=== PATIENT | female | born 1955 | race Two or more races ===

== ENCOUNTER 2023-12-07 13:25 | Outpatient (CLI) | payer OTHER | END 2023-12-07 13:33 | disposition home or self-care (01) | LOC: RAD 13:25 | PROVIDERS: ATTEND Physical Medicine & Rehabilitation | DX: M17.12 Unilateral primary osteoarthritis, left knee (principal); M17.11 Unilateral primary osteoarthritis, right knee ==

== ENCOUNTER 2024-02-21 08:14 | Outpatient (CLI) | payer OTHER | END 2024-02-21 08:15 | disposition home or self-care (01) | LOC: RAD 08:14 | PROVIDERS: ATTEND Physical Medicine & Rehabilitation | DX: M54.6 Pain in thoracic spine (principal); M54.50 Low back pain, unspecified ==

== ENCOUNTER → 2024-07-10 | Outpatient (CLI) | payer OTHER | END | disposition home or self-care (01) | LOC: RAD 08:15 | PROVIDERS: ATTEND Orthopaedic Surgery | DX: M25.561 Pain in right knee (principal); M25.562 Pain in left knee ==

== ENCOUNTER 2024-07-18 16:50 | Outpatient (CLI) | payer OTHER | END 2024-07-18 17:00 | disposition home or self-care (01) | LOC: TOM 16:50 | PROVIDERS: ATTEND Specialist | DX: K43.2 Incisional hernia without obstruction or gangrene (principal) | CPT/HCPCS: 74177; Q9965 ==

== ENCOUNTER 2024-11-12 11:36 | Inpatient (IN) | payer OTHER ==
[~2024-11-12] VITALS: Ht 152.4 cm; Wt 68.0 kg
[2024-11-12] MEDS ORDERED: ATENOLOL50 MG PO (12:01)
[2024-11-12] MEDS ORDERED: CHLORTHALIDONE25 MG PO (12:01)
[2024-11-12] MEDS ORDERED: AMOX-CLAV 875-1 EACH PO (12:01)
--- NOTE | 2024-11-12 12:02 | NUR ---
SE RECIBE PTE ALERTA, ORIENTADO X3 Y AMBULANDO. PTE REFIERE DOLOR ABDOMINAL DESDE LA MANANA Y NAUSEAS. SE MIDEN S/V Y SE UBICA.
[2024-11-12] MEDS ORDERED: KETOROLAC TROMETHAMINE 30 MG VIAL ONE (12:28)
[2024-11-12] MEDS ORDERED: DIATRIZOATE MEGLUMINE, SODIUM 30 ML BOTTLE ONE (12:28)
[2024-11-12] MEDS ORDERED: DIATRIZOATE MEGLUMINE, SODIUM 30 ML BOTTLE PO ONE (12:30)
[2024-11-12] MEDS ORDERED: 0.9 % SODIUM CHLORIDE 1,000 ML IV SCH ×2 (12:30→22:00)
[2024-11-12] MEDS ORDERED: KETOROLAC TROMETHAMINE 30 MG VIAL IV ONE (12:30)
[2024-11-12] MEDS ORDERED: ONDANSETRON HCL 2 MG/ML VIAL IV ONE (13:15)
[2024-11-12] MEDS ORDERED: ONDANSETRON HCL 2 MG/ML VIAL ONE (13:17)
[2024-11-12 13:23] LABS: BASO % 0.3 % (0.1-1.2); EOS # 0.19 (0.04-0.54); EOS % 0.6 % (0.7-7.0); LYMPH # 4.29 (1.18-3.74); LYMPH % 12.8 % (19.3-53.1); MEAN PLATELET VOLUME 9.80 fl (9.4-12.4); MONO # 1.29 (0.24-0.82); MONO % 3.9 % (4.7-12.5); NEUT # 27.27 (1.56-6.13); NEUT % 81.4 % (34.0-71.1); RED CELL DISTRIBUTION WIDTH 13.9 % (11.6-14.4)
[2024-11-12 13:46] LABS: INR 1.08
[2024-11-12 13:47] LABS: ALT/SGPT 18.0 U/L (12-78); AST/SGOT 10.0 U/L (15-37); BILIRUBIN TOTAL 0.64 mg/dL (0.3-1.2); BUN CREA RATIO 13.0 (7.0-25.0); CREATININE SERUM 0.64 mg/dL (0.55-1.02); GFR 92.01; GLOBULINA 4.2 G/DL (2.4-3.5); GLUCOSE FASTING 141.0 mg/dL (65-100); OSMOLALITY SERUM 275.0 MOSM/KG (275-295)
[2024-11-12 14:11] LABS: URINE APPEARANCE Clear; URINE BACTERIA 32.3 uL (0.0-1933); URINE BILIRRUBIN Negative (NEGATIVE); URINE BLOOD Negative; URINE COLOR Yellow; URINE EPITHELIAL CELLS 3.9 uL (0.0-38.8); URINE GLUCOSE Negative (NEGATIVE); URINE KETONE Negative (NEGATIVE); URINE LEUKOCYTE Negative; URINE NITRATE Negative; URINE PROTEIN Negative (NEGATIVE); URINE UROBILINOGEN 1.0 E.U./dl
[2024-11-12 14:18] LABS: URINE CAST 0.00 uL (0.0-1.40); URINE RBC 1.4 uL (0.0-20.8); URINE WBC 0.9 uL (0.0-23.2)
[2024-11-12] MEDS ORDERED: PIPERACILLIN/TAZOBACTAM SODIUM 3.375 GM VIAL IV ONE ×2 (14:45→15:09)
[2024-11-12] MEDS ORDERED: MEROPENEM 500 MG/VIAL VIAL IV SCH (22:03)
[2024-11-12] MEDS ORDERED: VANCOMYCIN HCL 1,000 MG VIAL IV SCH (22:03)
[2024-11-12] MEDS ORDERED: FAMOTIDINE/PF 20 MG in 0.9 % SODIUM CHLORIDE 8 ML IV PUSH SCH (22:04)
[2024-11-12] MEDS ORDERED: ONDANSETRON HCL 4 MG in 0.9 % SODIUM CHLORIDE 50 ML IV PRN (22:15)
[2024-11-12] MEDS ORDERED: MORPHINE SULFATE 4 MG/ML CARTRIDGE IV PRN (22:15)
[2024-11-12] MEDS ORDERED: ENALAPRILAT DIHYDRATE 2.5 MG/2 ML VIAL IV PRN (22:15)
[2024-11-12] MEDS ORDERED: RINGERS SOLUTION,LACTATED 1,000 ML IV SCH (22:15)
[2024-11-13] VITALS (9 sets, daily range): BP systolic 133–180; BP diastolic 70–84; O2SAT 97–100
[2024-11-13] MEDS ORDERED: SUGAMMADEX SODIUM 200 MG/2 ML VIAL IV ONE ×2 (01:52→03:00)
[2024-11-13 04:24] LABS: BASO % 0.2 % (0.1-1.2); EOS # 0.06 (0.04-0.54); EOS % 0.2 % (0.7-7.0); LYMPH # 3.20 (1.18-3.74); LYMPH % 9.0 % (19.3-53.1); MEAN PLATELET VOLUME 10.50 fl (9.4-12.4); MONO # 1.69 (0.24-0.82); MONO % 4.7 % (4.7-12.5); NEUT # 30.14 (1.56-6.13); NEUT % 84.5 % (34.0-71.1); RED CELL DISTRIBUTION WIDTH 14.0 % (11.6-14.4)
[2024-11-13] MEDS ORDERED: MORPHINE SULFATE 4 MG/ML CARTRIDGE IV PRN (06:10)
[2024-11-13] MEDS ORDERED: MORPHINE SULFATE 4 MG/ML VIAL IV STA (06:16)
[2024-11-13] MEDS ORDERED: LACTOBACILLUS ACIDOPHILUS 1 CAP CAP PO SCH ×2 (09:00→17:00)
[2024-11-13] MEDS ORDERED: SIMETHICONE 125 MG CAPSULE PO SCH (09:00)
[2024-11-13] MEDS ORDERED: VANCOMYCIN HCL 1,000 MG VIAL ONE ×2 (10:34→19:56)
[2024-11-14 04:00] VITALS: BP 141/70; O2SAT 99
[2024-11-14 06:05] LABS: BASO % 0.3 % (0.1-1.2); EOS # 0.27 (0.04-0.54); EOS % 0.9 % (0.7-7.0); LYMPH # 2.58 (1.18-3.74); LYMPH % 8.9 % (19.3-53.1); MEAN PLATELET VOLUME 10.40 fl (9.4-12.4); MONO # 2.97 (0.24-0.82); MONO % 10.2 % (4.7-12.5); NEUT # 22.94 (1.56-6.13); NEUT % 79.0 % (34.0-71.1); RED CELL DISTRIBUTION WIDTH 14.0 % (11.6-14.4)
[2024-11-14 06:52] LABS: ALT/SGPT 15.0 U/L (12-78); AST/SGOT 15.0 U/L (15-37); BILIRUBIN TOTAL 0.96 mg/dL (0.3-1.2); BUN CREA RATIO 16.0 (7.0-25.0); CREATININE SERUM 0.43 mg/dL (0.55-1.02); GFR 145.59; GLOBULINA 3.4 G/DL (2.4-3.5); GLUCOSE FASTING 127.0 mg/dL (65-100); OSMOLALITY SERUM 273.0 MOSM/KG (275-295)
[2024-11-14 07:03] VITALS: BP 121/62; O2SAT 100
[2024-11-14] MEDS ORDERED: VANCOMYCIN HCL 1,000 MG VIAL ONE ×2 (07:10→19:47)
[2024-11-14] MEDS ORDERED: CHLORHEXIDINE GLUCONATE 120 ML BOTTLE TOP ONE (11:33)
[2024-11-14 12:00] VITALS: BP 121/64; O2SAT 98
[2024-11-14 15:55] VITALS: BP 128/59; O2SAT 99
[2024-11-14] MEDS ORDERED: MAGNESIUM SULFATE IN WATER 50 ML IV ONE (19:15)
[2024-11-14 19:57] VITALS: BP 131/62; O2SAT 98
[2024-11-14 23:14] VITALS: BP 109/59; O2SAT 99
[2024-11-15 04:00] VITALS: BP 135/67; O2SAT 99
[2024-11-15 07:03] VITALS: BP 124/57; O2SAT 99
[2024-11-15] MEDS ORDERED: VANCOMYCIN HCL 1,000 MG VIAL ONE (09:08)
[2024-11-15] MEDS ORDERED: KETOROLAC TROMETHAMINE 30 MG VIAL IV PRN (11:15)
[2024-11-15 16:08] VITALS: BP 119/54; O2SAT 100
[2024-11-15] MEDS ORDERED: KETOROLAC TROMETHAMINE 30 MG VIAL ONE (19:13)
[2024-11-15 20:00] VITALS: BP 155/71; O2SAT 99
[2024-11-15] MEDS ORDERED: PIPERACILLIN/TAZOBACTAM SODIUM 3.375 GM in DEXTROSE 5 % IN WATER 100 ML IV SCH (20:00)
[2024-11-15 23:18] VITALS: BP 131/65; O2SAT 98
[2024-11-16 04:08] VITALS: BP 142/72; O2SAT 98
[2024-11-16 07:57] VITALS: BP 139/65; O2SAT 99
[2024-11-16 08:07] LABS: BASO % 0.3 % (0.1-1.2); EOS # 0.44 (0.04-0.54); EOS % 3.0 % (0.7-7.0); LYMPH # 1.75 (1.18-3.74); LYMPH % 11.9 % (19.3-53.1); MEAN PLATELET VOLUME 11.10 fl (9.4-12.4); MONO # 2.05 (0.24-0.82); NEUT # 10.33 (1.56-6.13); NEUT % 70.5 % (34.0-71.1); RED CELL DISTRIBUTION WIDTH 13.5 % (11.6-14.4)
[2024-11-16 08:10] LABS: MONO % 14.0 % (4.7-12.5)
[2024-11-16 08:34] LABS: ALT/SGPT 16.0 U/L (12-78); AST/SGOT 15.0 U/L (15-37); BILIRUBIN TOTAL 0.69 mg/dL (0.3-1.2); BUN CREA RATIO 21.0 (7.0-25.0); CREATININE SERUM 0.34 mg/dL (0.55-1.02); GFR 190.91; GLOBULINA 3.1 G/DL (2.4-3.5); GLUCOSE FASTING 111.0 mg/dL (65-100); OSMOLALITY SERUM 278.0 MOSM/KG (275-295)
[2024-11-16 11:00] VITALS: BP 155/74; O2SAT 99
[2024-11-16] MEDS ORDERED: CHLORHEXIDINE GLUCONATE 120 ML BOTTLE TOP ONE (11:14)
[2024-11-16 15:24] VITALS: BP 157/81; O2SAT 100
[2024-11-16 20:00] VITALS: BP 169/79; O2SAT 100
[2024-11-16 23:32] VITALS: BP 160/69; O2SAT 99
[2024-11-17 04:32] VITALS: BP 139/64; O2SAT 100
[2024-11-17 07:49] VITALS: BP 136/55; O2SAT 100
[2024-11-17 08:14] LABS: BASO % 0.4 % (0.1-1.2); EOS # 0.48 (0.04-0.54); EOS % 3.5 % (0.7-7.0); LYMPH # 2.08 (1.18-3.74); LYMPH % 15.2 % (19.3-53.1); MEAN PLATELET VOLUME 11.10 fl (9.4-12.4); MONO # 1.67 (0.24-0.82); NEUT # 9.33 (1.56-6.13); NEUT % 68.3 % (34.0-71.1); RED CELL DISTRIBUTION WIDTH 13.5 % (11.6-14.4)
[2024-11-17 08:40] LABS: MONO % 12.2 % (4.7-12.5)
[2024-11-17 09:07] LABS: ALT/SGPT 14.0 U/L (12-78); AST/SGOT 17.0 U/L (15-37); BILIRUBIN TOTAL 0.73 mg/dL (0.3-1.2); BUN CREA RATIO 21.0 (7.0-25.0); CREATININE SERUM 0.33 mg/dL (0.55-1.02); GFR 197.6; GLOBULINA 3.0 G/DL (2.4-3.5); GLUCOSE FASTING 72.0 mg/dL (65-100); OSMOLALITY SERUM 278.0 MOSM/KG (275-295)
[2024-11-17 11:00] VITALS: BP 132/61; O2SAT 100
[2024-11-17 15:08] VITALS: BP 125/54; O2SAT 100
[2024-11-17 20:00] VITALS: BP 151/64; O2SAT 100
[2024-11-17 23:13] VITALS: BP 125/60; O2SAT 100
[2024-11-18 06:14] VITALS: BP 139/80; O2SAT 97
[2024-11-18 06:26] LABS: BASO % 0.4 % (0.1-1.2); EOS # 0.50 (0.04-0.54); EOS % 3.7 % (0.7-7.0); LYMPH # 2.33 (1.18-3.74); LYMPH % 17.1 % (19.3-53.1); MEAN PLATELET VOLUME 10.30 fl (9.4-12.4); MONO # 1.33 (0.24-0.82); MONO % 9.8 % (4.7-12.5); NEUT # 9.32 (1.56-6.13); NEUT % 68.6 % (34.0-71.1); RED CELL DISTRIBUTION WIDTH 13.5 % (11.6-14.4)
[2024-11-18 07:06] LABS: ALT/SGPT 15.0 U/L (12-78); AST/SGOT 21.0 U/L (15-37); BILIRUBIN TOTAL 0.93 mg/dL (0.3-1.2); BUN CREA RATIO 17.0 (7.0-25.0); CREATININE SERUM 0.3 mg/dL (0.55-1.02); GFR 220.57; GLOBULINA 3.1 G/DL (2.4-3.5); GLUCOSE FASTING 55.0 mg/dL (65-100); OSMOLALITY SERUM 271.0 MOSM/KG (275-295)
[2024-11-18 07:25] VITALS: BP 118/47; O2SAT 97
[2024-11-18 07:26] VITALS: BP 128/63; O2SAT 94
[2024-11-18 12:28] VITALS: BP 148/88; O2SAT 94
[2024-11-18 16:00] VITALS: BP 150/80; O2SAT 97
[2024-11-18 20:03] LABS: ob NEGATIVE (NEGATIVE)
[2024-11-19 01:03] VITALS: BP 138/81; O2SAT 97
[2024-11-19 09:02] VITALS: BP 138/82; O2SAT 94
[2024-11-19 12:17] LABS: BASO % 0.3 % (0.1-1.2); EOS # 0.67 (0.04-0.54); EOS % 6.2 % (0.7-7.0); LYMPH # 2.39 (1.18-3.74); LYMPH % 22.1 % (19.3-53.1); MEAN PLATELET VOLUME 9.80 fl (9.4-12.4); MONO # 1.28 (0.24-0.82); MONO % 11.8 % (4.7-12.5); NEUT # 6.41 (1.56-6.13); NEUT % 59.2 % (34.0-71.1); RED CELL DISTRIBUTION WIDTH 13.3 % (11.6-14.4)
[2024-11-19] MEDS ORDERED: MAGNESIUM SULFATE IN WATER 50 ML IV NR (16:00)
[2024-11-19 16:12] VITALS: BP 169/87; O2SAT 97
[2024-11-20 01:44] VITALS: BP 143/82; O2SAT 97
[2024-11-20 08:59] VITALS: BP 135/86; O2SAT 95
== END 2024-11-20 20:25 | disposition home or self-care (01) | DRG 329 ==
LOC: ER 11:36 → ICU 22:12 → ICU-2 22:12 → ICU 11-13 03:18 → SURH 11-18 11:45
PROVIDERS: General Practice; Internal Medicine; Internal Medicine Infectious Disease; ADMIT Internal Medicine; ATTEND Internal Medicine
PROC: BW21ZZZ Computerized Tomography (CT Scan) of Abdomen and Pelvis (ICD-10-PCS; 2024-11-12)
PROC: 0DQ80ZZ Repair Small Intestine, Open Approach (ICD-10-PCS; principal; 2024-11-13)
PROC: 0WQF0ZZ Repair Abdominal Wall, Open Approach (ICD-10-PCS; 2024-11-13)
PROC: 0DN80ZZ Release Small Intestine, Open Approach (ICD-10-PCS; 2024-11-13)
PROC: 0W9F0ZZ Drainage of Abdominal Wall, Open Approach (ICD-10-PCS; 2024-11-13)
PROC: 0DXU0ZW Transfer Omentum to Abdominal Region, Open Approach (ICD-10-PCS; 2024-11-13)
PROC: 02HV33Z Insertion of Infusion Device into Superior Vena Cava, Percutaneous Approach (ICD-10-PCS; 2024-11-15)
DX: K63.1 Perforation of intestine (nontraumatic) (principal); K65.1 Peritoneal abscess; K63.0 Abscess of intestine; K56.50 Intestinal adhesions [bands], unspecified as to partial versus complete obstruction; K43.0 Incisional hernia with obstruction, without gangrene; K91.71 Accidental puncture and laceration of a digestive system organ or structure during a digestive system procedure; I10 Essential (primary) hypertension